=== PATIENT | male | born 1975 ===

== ENCOUNTER 2017-01-04 18:53 | Emergency (ER) | payer BC ==
[2017-01-04 19:01] VITALS: BP 147/101; PULSE 95; RESP 16; TEMP 98; O2SAT 96
--- NOTE | 2017-01-04 19:49 | ED PDOC ---
HPI: Chest Pain Time Seen by Provider: 01/04/17 19:00 Chief Complaint (Nursing): Dizziness/Lightheaded Chief Complaint (Provider): Dizziness/Lightheaded History Per: Patient History/Exam Limitations: no limitations Onset/Duration Of Symptoms: Mins (prior to arrival) Current Symptoms Are (Timing): Still Present Additional Complaint(s): Jonah Jackson is a 41 year old male with previous history of hypertension and diabetes who presents to the emergency department with a complaint of palpitations, headache and dizziness while in police custody prior to arrival because of a warrant out for pt for multiple speeding and other parking type tickets. pt was very agitated due to being in police custody. Denied any chest pain, shortness of breath, fever, chills or leg pain or swelling, parasthesia, weakness. Patient has history of prior left body weakness and slight left facial droop from previous stroke in 01/2016. PMD:,Mik Argueta MD Past Medical History Reviewed: Historical Data, Nursing Documentation, Vital Signs Vital Signs: Last Vital Signs Temp 98.0 F 01/04/17 18:57 Pulse 95 H 01/04/17 18:57 Resp 16 01/04/17 18:57 BP 147/101 H 01/04/17 18:57 Pulse Ox 96 01/11/17 23:59 - Medical History PMH: Diabetes, HTN, TIA (01/2016) Denies: Chronic Kidney Disease - Surgical History Surgical History: No Surg Hx - Family History Family History: States: Unknown Family Hx - Social History Current smoker - smoking cessation education provided: No Alcohol: None Drugs: Denies - Immunization History Hx Tetanus Toxoid Vaccination: No Hx Influenza Vaccination: No Hx Pneumococcal Vaccination: No - Home Medications Home Medications: Ambulatory Orders Medication Instructions Recorded Azilsartan Med/Chlorthalidone 1 tab PO DAILY 09/09/15 [Edarbyclor 40-25 mg Tablet] Insulin Detemir [Levemir] 20 unit SC HS 09/09/15 Insulin Lispro [Humalog] 09/09/15 Aspirin [Ecotrin] 81 mg PO DAILY #0 tabec 09/10/15 Metoprolol Tartrate [Lopressor] 25 mg PO BID #60 tab 09/10/15 amLODIPine [Norvasc] 5 mg PO DAILY #30 tab 09/10/15 - Allergies Allergies/Adverse Reactions: Allergies Allergy/AdvReac Type Severity Reaction Status Date / Time No Known Allergies Allergy Verified 09/09/15 15:52 Review of Systems ROS Statement: Except As Marked, All Systems Reviewed And Found Negative Constitutional: Negative for: Fever, Chills Cardiovascular: Positive for: Palpitations Musculoskeletal: Negative for: Leg Pain (or swelling) Neurological: Positive for: Headache, Dizziness Psych: Negative for: Depression, Psychosis, Suicidal ideation Physical Exam - Reviewed Nursing Documentation Reviewed: Yes Vital Signs Reviewed: Yes - Physical Exam Appears: Positive for: Well, Non-toxic, No Acute Distress Skin: Positive for: Normal Color, Warm, Dry Cardiovascular/Chest: Positive for: Regular Rate, Rhythm. Negative for: Chest Non Tender Respiratory: Positive for: Normal Breath Sounds. Negative for: Crackles, Rales , Rhonchi, Wheezing, Respiratory Distress Gastrointestinal/Abdominal: Positive for: Soft Extremity: Positive for: Normal ROM. Negative for: Tenderness, Pedal Edema, Deformity Neurologic/Psych: Positive for: Alert, Oriented, Other (old left facial droop/ weakness) - ECG O2 Sat by Pulse Oximetry: 96 (RA) Pulse Ox Interpretation: Normal Medical Decision Making Medical Decision Making: Initial Impression: Palpitations; hypertension/agitation Initial Plan: * CT head without contrast * EKG * CMP * CBC After examining pt, I explained to patient that I ordered EKG and bloodwork for him. Time: 1949 --Patient is agitated, screaming and threatening staff stating provider never saw patient after I examined him and placed orders. offered pt ativan to relieve agitation. offered pt crisis evaluation. however pt refusing. stating that he wants to go to another hospital. Time: 1999 --Patient AAOx3 and left before treatment were completed. Scribe Attestation: Documented by Yamel Partida, acting as a scribe for Melvi Roman MD. Provider Scribe Attestation: All medical record entries made by the Scribe were at my direction and personally dictated by me. I have reviewed the chart and agree that the record accurately reflects my personal performance of the history, physical exam, medical decision making, and the department course for this patient. I have also personally directed, reviewed, and agree with the discharge instructions and disposition. Disposition - Clinical Impression Clinical Impression: Dizziness - Patient ED Disposition Is Patient to be Admitted: No - Disposition Disposition: Left W/O Treatment Disposition Time: 20:00 Condition: STABLE Forms: [facility] ([place])
[2017-01-04] MEDS ORDERED: Labetalol 5 mg/ml Inj 20ML IVP STA (20:01)
== END 2017-01-04 20:06 | disposition left against medical advice (07) ==
LOC: H.ER 18:53
DX: R42 Dizziness and giddiness (principal); E11.9 Type 2 diabetes mellitus without complications; I10 Essential (primary) hypertension; Z79.4 Long term (current) use of insulin; Z79.82 Long term (current) use of aspirin; Z86.73 Personal history of transient ischemic attack (TIA), and cerebral infarction without residual deficits